=== PATIENT | male | born 1965 | race Caucasian/White ===

== ENCOUNTER 2023-04-15 13:02 | Emergency (ER) | payer BC ==
[2023-04-15] MEDS ORDERED: Ketorolac 30 MG/ML SDV IM ONE (14:49)
[2023-04-15] MEDS ORDERED: Acetaminophen/oxyCODONE 325-5 MG Tab PO ONE (14:50)
== END 2023-04-15 16:10 | disposition home or self-care (01) ==
LOC: JP.ED 13:02
DX: S79.921A Unspecified injury of right thigh, initial encounter (principal); Z79.82 Long term (current) use of aspirin; Z79.02 Long term (current) use of antithrombotics/antiplatelets; W18.42XA Slipping, tripping and stumbling without falling due to stepping into hole or opening, initial encounter
CPT/HCPCS: 73552; 96372; 99283; A9270; J1885